=== PATIENT | female | born 1970 | race African-American/Black ===

== ENCOUNTER 2020-09-15 14:02 | Emergency (ER) | payer BC ==
[~2020-09-15] VITALS: Ht 154.9 cm; Wt 80.0 kg
[~2020-09-15 14:02] MED LIST: AMLODIPINE5 MG PO; AMOXICILLIN500 MG PO; ATIVAN0.5 MG OR; BACTRIM DS1 TAB OR; BOOSTRIX IM; FIORICE1 PO; FIORICET PO; HYDROCHLOROT12.5 MG PO; IBUPROFEN600 MG PO; LISINOPRIL10 MG OR; LISINOPRIL20 MG PO; LORTAB 10 PO; LORTAB5 OR; NAPROSYN500 MG OR; TAMOXIFEN20 MG OR; TIMOLOL MAL OR; TIMOLOL MAL PO; TORADOL PO
[2020-09-15] MEDS ORDERED: TRAMADOL HYDROC50 M1 PO (15:36)
[2020-09-15 16:01] VITALS: BP 148/88
== END 2020-09-15 16:00 | disposition home or self-care (01) | DRG 563 ==
LOC: ED 14:02
DX: S63.501A Unspecified sprain of right wrist, initial encounter (principal); I10 Essential (primary) hypertension; X58.XXXA Exposure to other specified factors, initial encounter

== ENCOUNTER 2022-01-29 09:44 | Emergency (ER) | payer BC ==
[~2022-01-29] VITALS: Ht 154.9 cm; Wt 85.0 kg
[~2022-01-29 09:44] MED LIST changes: +TRAMADOL HYDROC50 M1 PO
[2022-01-29] MEDS ORDERED: BACTRIM DS1 TAB PO (09:58)
[2022-01-29] MEDS ORDERED: AMOX/K CLAV875 M1 PO (09:58)
[2022-01-29 10:20] VITALS: BP 144/90
== END 2022-01-29 10:28 | disposition home or self-care (01) | DRG 605 ==
LOC: ED 09:44
DX: S61.452A Open bite of left hand, initial encounter (principal); L03.012 Cellulitis of left finger; I10 Essential (primary) hypertension; E66.9 Obesity, unspecified; W54.0XXA Bitten by dog, initial encounter